=== PATIENT | male | born 1990 | race Caucasian/White ===

== ENCOUNTER 2023-07-09 18:47 | Emergency (ER) | payer BC, MEDICAID ==
[~2023-07-09] VITALS: Ht 175.3 cm; Wt 86.2 kg
[2023-07-09 19:04] VITALS: BP 135/78; PULSE 97; RESP 20; TEMP 98.2; O2SAT 100
[2023-07-09 19:21] VITALS: O2SAT 99
[2023-07-09 19:29] VITALS: BP 118/83; PULSE 85; RESP 16; TEMP 97.9; O2SAT 100
[2023-07-09] MEDS: KETOROLAC 60 MG/2 ML VIAL IM ONE (21:11)
[2023-07-09] MEDS ORDERED: IBUP-2213 PO (21:40)
[2023-07-09] MEDS ORDERED: ACET-503 PO (21:40)
== END 2023-07-09 21:52 | disposition home or self-care (01) ==
LOC: MED 18:47
DX: S13.4XXA Sprain of ligaments of cervical spine, initial encounter (principal); R55 Syncope and collapse; M25.562 Pain in left knee; M25.561 Pain in right knee; M25.532 Pain in left wrist; M25.531 Pain in right wrist; V49.88XA Car occupant (driver) (passenger) injured in other specified transport accidents, initial encounter; Y93.89 Activity, other specified; Y92.89 Other specified places as the place of occurrence of the external cause; Y99.8 Other external cause status
CPT/HCPCS: 70450; 70490; 71045; 73110; 73562; 93005; 96372; 99285; J1885